=== PATIENT | male | born 1980 | race Caucasian/White ===

== ENCOUNTER 2020-10-25 11:38 | Outpatient (REF) | payer BC, SELFPAY ==
[2020-10-25 12:29] LABS: MANUAL DIFF FLAG NO
[2020-10-25 12:30] LABS: Basophils Percent Auto 0.9 % (0-2); Eosinophils Percent Auto 0.9 % (0-4); Hematocrit 44.3 % (42-52); Hemoglobin 15.2 g/dl (14.0-18.0); Imm Gran Abs Auto 0.01 X10*3/uL (0.00-0.03); Imm Gran Pct Auto 0.3 % (0.0-0.4); Lymphocytes Absolute Auto 1.1 X10*3/uL (1.2-4.9); Lymphocytes Percent Auto 32.9 % (20-40); Mean Corpuscular HGB Conc 34.3 g/dl (31.0-36.0); Mean Corpuscular Hemoglobin 30.3 pg (27.0-33.0); Mean Corpuscular Volume 88.2 fL (80-98); Mean Platelet Volume 9.1 fL (9.4-12.4); Monocytes Absolute Auto 0.3 X10*3/uL (0.1-1.2); Monocytes Percent Auto 8.8 % (2-11); Neutrophils Absolute Auto 1.9 X10*3/uL (2.0-8.3); Neutrophils Percent Auto 56.2 % (45-73); Platelet Count 178 X10*3/uL (160-400); Red Blood Count 5.02 X10*6/uL (4.60-5.80); Red Cell Distribution Width 11.7 % (11.0-16.0); White Blood Count 3.4 X10*3/uL (4.8-10.8)
[2020-10-25 12:43] LABS: Estimated Average Glucose 94 mg/dL; Hemoglobin A1c % 4.9 %
[2020-10-25 13:08] LABS: Alanine Aminotransferase 35 U/L (0-40); Albumin Level 4.6 g/dL (3.5-5.0); Alkaline Phosphatase 63 U/L (39-117); Anion Gap 11 (12-20); Aspartate Amino Transferase 28 U/L (5-37); Blood Urea Nitrogen 12 mg/dL (9-16); Carbon Dioxide 29 mmol/L (22-29); Chloride 105 mmol/L (96-108); Estimated Glomerular Filt Rate > 60; Glucose Random 79 mg/dL (60-115); Potassium 4.7 mmol/L (3.3-5.1); Sodium 140 mmol/L (135-145); Total Protein 7.4 g/dL (6.5-8.0)
[2020-10-25 13:32] LABS: Free T4 (Free Thyroxine) 0.94 ng/dL (0.71-1.85); Prostate Specific Antigen 0.41 ng/mL (<0.05-4.0); Thyroid Stimulating Hormone 0.62 uIU/mL (0.32-4.0); Vitamin D 25-OH Total 18.4 ng/mL (>30)
[2020-10-25 13:39] LABS: Folate 14.5 ng/mL (> or = 4.0); Vitamin B12 343 pg/mL (200-900)
[2020-10-25 13:56] LABS: Appearance Urine CLEAR; Color Urine YELLOW; Glucose Urine UA NEG (NEG); Leukocyte Esterase Urine NEG (NEG); Nitrite Urine NEG (NEG); Urine Blood NEG (NEG); Urine Ketones NEG (NEG); Urine Protein NEG (NEG-TRACE)
[2020-10-27 05:07] LABS: DHEA Sulfate 346 mcg/dL (106-464)
[2020-10-27 09:47] LABS: Thyroglobulin Antibodies <1 IU/mL (< or = 1); Thyroid Peroxidase Antibodies 1 IU/mL (<9)
[2020-10-28 04:06] LABS: Triiodothyronine T3 Free 2.8 pg/mL (2.3-4.2)
[2020-10-29 21:07] LABS: Immunoglobulin G Subclass 1 583 mg/dL (382-929); Immunoglobulin G Subclass 2 235 mg/dL (241-700); Immunoglobulin G Subclass 3 22 mg/dL (22-178); Immunoglobulin G Subclass 4 44.5 mg/dL (4-86); Immunoglobulin G Total 1052 mg/dL (600-1640)
[2020-10-30 05:27] LABS: Methylmalonic Acid 69 nmol/L (87-318)
[2020-10-31 14:07] LABS: Testosterone, Free 133.8 pg/mL (35.0-155.0); Testosterone, Total 904 ng/dL (250-1100)
[2020-10-31 22:02] LABS: Dihydrotestosterone 56 ng/dL (12-65)
[2020-11-01 11:12] LABS: Vitamin B5 (Pantothenic Acid) <40 ng/mL (<275)
[2020-11-01 14:52] LABS: Nicotinamide <20 ng/mL; Vit B3 - Nicotinic Acid <20 ng/mL
[2020-11-02 13:11] LABS: Vitamin B1 <6 nmol/L (8-30)
== END 2020-10-25 11:39 | disposition home or self-care (01) ==
LOC: HO.LAB 11:38
PROVIDERS: PCP Nurse Practitioner Family; Visit Provider Nurse Practitioner Family
DX: R53.83 Other fatigue (principal); E16.2 Hypoglycemia, unspecified; R30.0 Dysuria; Z12.5 Encounter for screening for malignant neoplasm of prostate
CPT/HCPCS: 36415; 80053; 81003; 82306; 82607; 82627; 82642; 82746; 82784; 83036; 83735; 83921; 84153; 84207; 84252; 84402; 84403; 84425; 84439; 84443; 84481; 84591; 85025; 86376; 86800; 87086